=== PATIENT | female | born 1960 | race American Indian/Alaskan Native ===

== ENCOUNTER 2020-09-06 17:37 | Emergency (ER) | payer OTHER ==
[2020-09-06] MEDS ORDERED: SODIUM CHLORIDE 0.9% 1000 ML 1,000 ML ONE (17:54)
--- NOTE | 2020-09-06 20:04 | Emergency Department Report ---
Blank Doc - Documentation Documentation: 60-year-old female that presents with syncopal episode that occurred earlier t rashmi. Patient denies any headache or visual changes. Patient stated had a ground-level fall and is complaining about lower back pain. 1- This initial assessment/diagnostic orders/clinical plan/ treatment(s) is/are subject to change based on pt's health status, clinical progression and re- assessment by fellow clinical providers in the ED. Further treatment and workup at subsequent clinical provers discretion. Patient/guardians urged not to elope from ED as their condition may be serious if not clinically assessed and managed. 2-labs 3-x-rays
--- NOTE | 2020-09-06 20:40 | XRay Report ---
LUMBAR SPINE 2 VIEWS 2025 INDICATION: fall with psin COMPARISON: None available. FINDINGS: Mild scoliosis is seen. Mild degenerative changes are noted without significant disc space narrowing. No fractures or subluxations are seen. Tubal ligation clips are noted. Signer Name: Melvin Garcia MD Signed: 09/06/2020 8:36 PM Workstation Name: [email or web address]
[2020-09-06 20:45] LABS: Hematocrit 44.6 % (30.3-42.9); Hemoglobin 15.1 gm/dl (10.1-14.3); Mean Corpuscular HGB Conc 34 % (30-34); Mean Corpuscular Volume 90 fl (79-97); Platelet Count 342 K/mm3 (140-440); Red Blood Count 4.96 M/mm3 (3.65-5.03); Red Cell Distribution Width 14.6 % (13.2-15.2)
[2020-09-06 21:01] LABS: Alanine Aminotransferase 12 units/L (7-56); Albumin 4.6 g/dL (3.9-5); Blood Urea Nitrogen 12 mg/dL (7-17); Calcium 9.7 mg/dL (8.4-10.2); Hemolysis Index 8
[2020-09-06 21:05] LABS: BUN/Creatinine Ratio 20; Creatine Kinase MB < 1.0 ng/mL (0.0-4.0)
[2020-09-06 21:45] LABS: RBC Morphology Normal; Total Cells Counted 100
[2020-09-06] MEDS ORDERED: ACETAMINOPHEN 500 MG TAB PO ONE (22:30)
--- NOTE | 2020-09-06 23:42 | Emergency Department Report ---
ED Syncope HPI - General Chief Complaint: Syncope Stated Complaint: SYNCOPE Time Seen by Provider: 09/06/20 18:44 - History of Present Illness Initial Comments: Patient is a 60-year-old F [place] female who had tooth extraction this morning. After the the extraction the patient states she walked to the counter and then felt very dizzy hot and lost consciousness. States she passed out 3 times each time with trying to stand. Patient was orthostatic on paramedics arrival and they gave her IV fluids. Patient states she is feeling fine now except for lower back and tailbone discomfort from the fall. She denies any chest pain shortness of breath cough cold or congestion. Patient states she had eaten earlier this morning and was likely not hypoglycemic at the time she passed out. She had this local anesthesia and injections into the mouth for the tooth extraction. Patient states she believes she hit the left posterior head when she passed out. Has some minimal discomfort. Is not ataxic and having no focal neurological signs. - Related Data Allergies/Adverse Reactions: Allergies No Known Allergies Allergy (Unverified 09/06/20 18:32) Home Medications: Ambulatory Orders Ketorolac [Toradol] 10 mg PO Q6H PRN #12 tablet 09/06/20 methOCARBAMOL [Robaxin TAB] 500 mg PO Q6H PRN #12 tablet 09/06/20 ED Review of Systems ROS: Stated complaint: SYNCOPE Other details as noted in HPI Comment: All other systems reviewed and negative ED Past Medical Hx - Past Medical History Previous Medical History?: Yes Hx Hypertension: Yes - Surgical History Past Surgical History?: No - Medications Home Medications: Home Medications Medication Instructions Recorded Confirmed Last Taken Type Ketorolac [Toradol] 10 mg PO Q6H PRN #12 tablet 09/06/20 Unknown Rx methOCARBAMOL [Robaxin TAB] 500 mg PO Q6H PRN #12 tablet 09/06/20 Unknown Rx ED Physical Exam - General Limitations: No Limitations General appearance: alert, in no apparent distress - Head Head exam: Present: atraumatic, normocephalic - Eye Eye exam: Present: normal appearance - ENT ENT exam: Present: mucous membranes moist - Neck Neck exam: Present: normal inspection - Respiratory Respiratory exam: Present: normal lung sounds bilaterally. Absent: respiratory distress, wheezes, rales, rhonchi - Cardiovascular Cardiovascular Exam: Present: regular rate, normal rhythm. Absent: systolic murmur, diastolic murmur, rubs, gallop - GI/Abdominal GI/Abdominal exam: Present: soft, normal bowel sounds. Absent: distended, tenderness, guarding, rebound - Extremities Exam Extremities exam: Present: normal inspection - Back Exam Back exam: Present: normal inspection, vertebral tenderness (lower lumbar) - Neurological Exam Neurological exam: Present: alert, oriented X3 - Psychiatric Psychiatric exam: Present: normal affect, normal mood - Skin Skin exam: Present: warm, dry, intact, normal color. Absent: rash ED Course Vital Signs 09/06/20 18:28 Temperature 98.2 F Pulse Rate 89 Respiratory 18 Rate Blood Pressure 120/69 [Right] O2 Sat by Pulse 100 Oximetry ED Medical Decision Making - Lab Data Result diagrams: 09/06/20 20:05 09/06/20 20:05 Lab Results 09/06/20 09/06/20 Range/Units 20:05 20:05 WBC 15.2 H (4.5-11.0) K/mm3 RBC 4.96 (3.65-5.03) M/mm3 Hgb 15.1 H (10.1-14.3) gm/dl Hct 44.6 H (30.3-42.9) % MCV 90 (79-97) fl MCH 31 (28-32) pg MCHC 34 (30-34) % RDW 14.6 (13.2-15.2) % Plt Count 342 (140-440) K/mm3 Add Manual Diff Complete Total Counted 100 Seg Neuts % (Manual) 82.0 H (40.0-70.0) % Lymphocytes % (Manual) 12.0 L (13.4-35.0) % Monocytes % (Manual) 4.0 (0.0-7.3) % Eosinophils % (Manual) 1.0 (0.0-4.3) % Basophils % (Manual) 1.0 (0.0-1.8) % Nucleated RBC % Not Reportable Seg Neutrophils # Man 12.5 H (1.8-7.7) K/mm3 Band Neutrophils # 0.0 K/mm3 Lymphocytes # (Manual) 1.8 (1.2-5.4) K/mm3 Abs React Lymphs (Man) 0.0 K/mm3 Monocytes # (Manual) 0.6 (0.0-0.8) K/mm3 Eosinophils # (Manual) 0.2 (0.0-0.4) K/mm3 Basophils # (Manual) 0.2 H (0.0-0.1) K/mm3 Metamyelocytes # 0.0 K/mm3 Myelocytes # 0.0 K/mm3 Promyelocytes # 0.0 K/mm3 Blast Cells # 0.0 K/mm3 WBC Morphology Not Reportable Hypersegmented Neuts Not Reportable Hyposegmented Neuts Not Reportable Hypogranular Neuts Not Reportable Smudge Cells Not Reportable Toxic Granulation Not Reportable Toxic Vacuolation Not Reportable Dohle Bodies Not Reportable Pelger-Huet Anomaly Not Reportable Rosalba Rods Not Reportable Platelet Estimate Not Reportable Clumped Platelets Not Reportable Plt Clumps, EDTA Not Reportable Large Platelets Not Reportable Giant Platelets Not Reportable Platelet Satelliting Not Reportable Plt Morphology Comment Not Reportable RBC Morphology Normal Dimorphic RBCs Not Reportable Polychromasia Not Reportable Hypochromasia Not Reportable Poikilocytosis Not Reportable Anisocytosis Not Reportable Microcytosis Not Reportable Macrocytosis Not Reportable Spherocytes Not Reportable Pappenheimer Bodies Not Reportable Sickle Cells Not Reportable Target Cells Not Reportable Tear Drop Cells Not Reportable Ovalocytes Not Reportable Helmet Cells Not Reportable Durant-Blades Bodies Not Reportable [place] Rings Not Reportable Ray Cells Not Reportable Bite Cells Not Reportable Crenated Cell Not Reportable Elliptocytes Not Reportable Acanthocytes (Spur) Not Reportable Rouleaux Not Reportable Hemoglobin C Crystals Not Reportable Schistocytes Not Reportable Malaria parasites Not Reportable Margarito Bodies Not Reportable Hem Pathologist Commnt No Sodium 139 (137-145) mmol/L Potassium 4.2 (3.6-5.0) mmol/L Chloride 100.0 (98-107) mmol/L Carbon Dioxide 26 (22-30) mmol/L Anion Gap 17 mmol/L BUN 12 (7-17) mg/dL Creatinine 0.6 (0.6-1.2) mg/dL Estimated GFR > 60 ml/min BUN/Creatinine Ratio 20 % Glucose 92 (65-100) mg/dL Calcium 9.7 (8.4-10.2) mg/dL Magnesium 1.90 (1.7-2.3) mg/dL Total Bilirubin 0.50 (0.1-1.2) mg/dL AST 14 (5-40) units/L ALT 12 (7-56) units/L Alkaline Phosphatase 120 (35-129) units/L Total Creatine Kinase 87 (30-135) units/L CK-MB (CK-2) < 1.0 (0.0-4.0) ng/mL CK-MB (CK-2) Rel Index 1.1 (0-4) Troponin T < 0.010 (0.00-0.029) ng/mL Total Protein 6.8 (6.3-8.2) g/dL Albumin 4.6 (3.9-5) g/dL Albumin/Globulin Ratio 2.1 % - EKG Data -: EKG Interpreted by Wy EKG shows normal: sinus rhythm, axis, intervals, QRS complexes, ST-T waves Rate: normal - EKG Data Interpretation: normal EKG - Radiology Data [facility] [address] [place] [address] XRay Report Signed Patient: HAFSA BURRELL MR#: [id number] : 1960 Acct:[id number] Age/Sex: 60 / F ADM Date: 09/06/20 Loc: ED Attending Dr: Ordering Physician: LULY GUILLERMO NP Date of Service: 09/06/20 Procedure(s): XR spine lumbosacral 2-3V Accession Number(s): [id number] cc: LULY GUILLERMO NP Fluoro Time In Minutes: LUMBAR SPINE 2 VIEWS 2025 INDICATION: fall with psin COMPARISON: None available. FINDINGS: Mild scoliosis is seen. Mild degenerative changes are noted without significant disc space narrowing. No fractures or subluxations are seen. Tubal ligation clips are noted. Signer Name: Melvin Garcia MD Signed: 09/06/2020 8:36 PM Workstation Name: [email or web address] - Medical Decision Making Patient had is no longer orthostatic. Patient does not appear to be criteria for a CT of the head. She is alert and oriented x3. Patient to be discharged home with follow-up with primary care physician as needed. Patient likely had a vasovagal syncopal episode after the tooth extraction with local anesthesia Critical care attestation.: If time is entered above; I have spent that time in minutes in the direct care of this critically ill patient, excluding procedure time. ED Disposition Clinical Impression: Vasovagal episode, Orthostasis, Lower back injury Disposition: - TO HOME OR SELFCARE Is pt being admited?: No Does the pt Need Aspirin: No Condition: Stable Instructions: Syncope (ED), Orthostatic Hypotension Referrals: PRIMARY CARE, [Primary Care Provider] - 3-5 Days Time of Disposition: 23:41
[2020-09-06 23:54] VITALS: BP 118/63
--- NOTE | 2020-09-07 13:56 | Electrocardiograph Report ---
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
== END 2020-09-06 23:53 | disposition home or self-care (01) ==
LOC: ED 17:37
DX: S39.92XA Unspecified injury of lower back, initial encounter (principal); R55 Syncope and collapse; J18.2 Hypostatic pneumonia, unspecified organism; I10 Essential (primary) hypertension; Z79.899 Other long term (current) drug therapy; X58.XXXA Exposure to other specified factors, initial encounter; Y93.89 Activity, other specified; Y92.89 Other specified places as the place of occurrence of the external cause; Y99.8 Other external cause status
CPT/HCPCS: 36415; 72100; 80053; 82550; 82553; 83735; 84484; 85007; 85025; 93005; 99284; J7030